=== PATIENT | male | born 1990 | race Caucasian/White ===

== ENCOUNTER 2022-11-16 07:41 | Emergency (ER) | payer MEDICAID ==
[~2022-11-16] VITALS: Ht 188 cm; Wt 159.0 kg
[2022-11-16 07:47] VITALS: BP 147/86
[2022-11-16] MEDS ORDERED: TETANUS, DIPHTHERIA, PERTUSSIS VAC/PF 0.5ML (>10YR OLD) IM ONE (08:30)
[2022-11-16] MEDS ORDERED: LIDOCAINE HCL 1% 20ML VIAL (Pyxis) INJ INFIL ONE (09:00)
[2022-11-16] MEDS ORDERED: BACITRACIN 15GM TUBE TOP ONE (10:00)
[2022-11-16] MEDS ORDERED: BACITRACIN ZINC OINT UDPKT TOP ONE (10:15)
== END 2022-11-16 10:10 | disposition home or self-care (01) ==
LOC: ER 07:41
DX: S61.412A Laceration without foreign body of left hand, initial encounter (principal); X58.XXXA Exposure to other specified factors, initial encounter; Y93.89 Activity, other specified; Y92.89 Other specified places as the place of occurrence of the external cause; Y99.8 Other external cause status
CPT/HCPCS: 12002; 73130; 90471; 90715; 99283; J3490; Z7610